=== PATIENT | male | born 1990 | race African-American/Black ===

== ENCOUNTER 2019-07-22 11:13 | Emergency (ER) | payer SELFPAY ==
[2019-07-22 11:19] VITALS: BP 144/80
--- NOTE | 2019-07-22 11:32 | ER Document Report ---
HPI - HPI Time Seen by Provider: 07/22/19 11:20 Pain Level: 2 Notes: 28-year-old male presents to the emergency room for evaluation of right plantar wart that is been several months. Denies any fevers or chills. States painful when he is ambulating due to having high arches. Has not seen his primary care provider for this issue. Pain is 3 out of 10, throbbing. No uqef-oas-yarwodq medications have been tried. Worse with time, nothing makes better. Denies any fevers chills, nausea vomiting diarrhea, weakness, disturbance in his gait. REVIEW OF SYSTEMS:reviewed vital signs by RN CONSTITUTIONAL : Denies fever, chills, or sweats. Denies recent illness. EENT: Denies eye, ear, throat, or mouth pain or symptoms. Denies nasal or sinus congestion or discharge. Denies throat, tongue, or mouth swelling or difficulty swallowing. CARDIOVASCULAR: Denies chest pain. Denies palpitations or racing or irregular heart beat. Denies ankle edema. RESPIRATORY: Denies cough, cold, or chest congestion. Denies shortness of breath, difficulty breathing, or wheezing. GASTROINTESTINAL: Denies abdominal pain or distention. Denies nausea, vomiting, or diarrhea. Denies blood in vomitus, stools, or per rectum. Denies black, tarry stools. Denies constipation. GENITOURINARY: Denies difficulty urinating, painful urination, burning, frequency, blood in urine, or discharge. MUSCULOSKELETAL: Denies back or neck pain or stiffness. Denies joint pain or swelling. SKIN: Reports right plantar wart. Denies rash, lesions or sores. HEMATOLOGIC : Denies easy bruising or bleeding. LYMPHATIC: Denies swollen, enlarged glands. NEUROLOGICAL: Denies confusion or altered mental status. Denies passing out or loss of consciousness. Denies dizziness or lightheadedness. Denies headache. Denies weakness or paralysis or loss of use of either side. Denies problems with gait or speech. Denies sensory loss, numbness, or tingling. Denies seizures. PSYCHIATRIC: Denies anxiety or stress. Denies depression, suicidal ideation, or homicidal ideation. ALL OTHER SYSTEMS REVIEWED AND NEGATIVE. Dictation was performed using [employer] voice recognition software PHYSICAL EXAMINATION: GENERAL: Well-appearing, well-nourished and in no acute distress. HEAD: Atraumatic, normocephalic. EYES: Pupils equal round and reactive to light, extraocular movements intact, sclera anicteric, conjunctiva are normal. ENT: Nares patent, oropharynx clear without exudates. Moist mucous membranes. NECK: Normal range of motion, supple without lymphadenopathy LUNGS: Breath sounds clear to auscultation bilaterally and equal. No wheezes rales or rhonchi. HEART: Regular rate and rhythm without murmurs ABDOMEN: Soft, nontender, nondistended abdomen. No guarding, no rebound. No masses appreciated. Musculoskeletal: Normal range of motion, no pitting or edema. No cyanosis. NEUROLOGICAL: Cranial nerves grossly intact. Normal speech, normal gait. Normal sensory, motor exams PSYCH: Normal mood, normal affect. SKIN: Warm, Dry, normal turgor, no rashes or lesions noted. right planter wart to MTP on dorsal aspect. no erythema, induration or warmth to touch. no open wounds. - REPRODUCTIVE Reproductive: DENIES: : Past Medical History - Social History Smoking Status: Never Smoker Chew tobacco use (# tins/day): No Frequency of alcohol use: None Drug Abuse: None Family History: Reviewed & Not Pertinent Patient has suicidal ideation: No Patient has homicidal ideation: No Past Surgical History: Reports: Hx Appendectomy - Immunizations Hx Diphtheria, Pertussis, Tetanus Vaccination: Yes Vertical Provider Document - INFECTION CONTROL TRAVEL OUTSIDE OF THE [place] IN LAST 30 DAYS: No Course - Re-evaluation Re-evalutation: 07/22/19 11:32 Afebrile vital stable no distress. Advised to use medicine as directed. Follow-up with ingredient specialist or primary care provider for wart removal. Take vitt-eie-beyzuny ibuprofen Tylenol as needed. Advised to use inserts to assist with pain with walking. After performing a Medical Screening Examination, I estimate there is LOW risk for OPEN FRACTURE, COMPARTMENT SYNDROME, TENDON RUPTURE, ACUTE NEUROVASCULAR INJURY, or RETAINED FOREIGN BODY, thus I consider the discharge disposition reasonable. Also, there is no evidence or peritonitis, sepsis, or toxicity. I have reevaluated this patient multiple times and no significant life threatening changes are noted. The patient and I have discussed the diagnosis and risks, and we agree with discharging home with close follow-up with the understanding that symptoms and presentations can change. We also discussed returning to the Emergency Department immediately if new or worsening symptoms occur. We have discussed the symptoms which are most concerning (e.g., changing or worsening pain, fever, numbness, weakness, cool or painful digits) that necessitate immediate return. - Vital Signs Vital signs: Temp Pulse Resp BP Pulse Ox 98.6 F 91 18 144/80 H 98 07/22/19 11:21 07/22/19 11:21 07/22/19 11:21 07/22/19 11:21 07/22/19 11:21 Discharge - Discharge Clinical Impression: Plantar wart, right foot Condition: Stable Disposition: HOME, SELF-CARE Instructions: Plantar Warts ([facility]), Warts ([facility]), [facility] Additional Instructions: Warts You have warts. They're caused by a virus. The warts can spread to other areas of your body, and can be passed to other people. Warts will usually go away, but this can take years. For most warts, the best choice is to apply an anti-wart compound regularly until every wart is gone. There are prescription and hrqd-tde-hjsptqh preparations, usually containing either podophyllin or salicylic acid. Follow the directions carefully, and apply the medicine only to the wart. Warts can be removed by freezing or cautery. Because warts usually go away without causing damage, this treatment is reserved for more severe or resistant warts. Call the doctor if you develop swelling, increasing pain, fever, red streaks, or discharge. Apply Compound W daily and then place duct tape over it, this will slowly help treat your plantar wart Return immediately for any new or worsening symptoms. Follow up with primary care provider, call tomorrow to make followup appointment. Forms: Return to Work Referrals: TORI MOORE MD [COMMUNITY BASED STAFF] - Follow up as needed
== END 2019-07-22 11:40 | disposition home or self-care (01) ==
LOC: ER 11:13
DX: B07.0 Plantar wart (principal)
CPT/HCPCS: 99283

== ENCOUNTER 2020-05-19 09:21 | Emergency (ER) | payer SELFPAY ==
--- NOTE | 2020-05-19 09:44 | ER Document Report ---
ED General - General Chief Complaint: Numbness of Face Stated Complaint: FACIAL NUMBNESS,LIP SWELLING Time Seen by Provider: 05/19/20 09:21 Mode of Arrival: Ambulatory Information source: Patient Notes: 29-year-old male patient presents emergency department concern for numbness and drooping to his face. Patient reports last night he came home from work and had a severe headache. He states that he tried to go to sleep. When he woke up this morning he went to brush his teeth and noticed that something did not feel right. When he looked in the mirror he noticed that he had some drooping to the left side of his mouth. He also reports altered sensation to the left side of his face. He denies any other complaints. He denies any past medical history but does report that he has had elevated blood pressure readings in the past. TRAVEL OUTSIDE OF THE [place] IN LAST 30 DAYS: No - Related Data Allergies/Adverse Reactions: No Known Allergies Allergy (Verified 05/02/16 11:41) Past Medical History - General Information source: Patient - Social History Smoking Status: Never Smoker Frequency of alcohol use: None Drug Abuse: None Family History: Reviewed & Not Pertinent - Medical History Medical History: Negative Past Surgical History: Reports: Hx Appendectomy - Immunizations Hx Diphtheria, Pertussis, Tetanus Vaccination: Yes Review of Systems - Review of Systems Constitutional: No symptoms reported EENT: No symptoms reported Cardiovascular: No symptoms reported Respiratory: No symptoms reported Gastrointestinal: No symptoms reported Genitourinary: No symptoms reported Male Genitourinary: No symptoms reported Musculoskeletal: No symptoms reported Skin: No symptoms reported Hematologic/Lymphatic: No symptoms reported Neurological/Psychological: Headaches, Other - Facial palsy/left-sided facial numbness Physical Exam - Vital signs Vitals: Temp Pulse Resp BP Pulse Ox 98.5 F 77 18 161/72 H 100 05/19/20 09:35 05/19/20 09:35 05/19/20 09:35 05/19/20 09:35 05/19/20 09:35 - Notes Notes: PHYSICAL EXAMINATION: GENERAL: Well-appearing, well-nourished and in no acute distress. HEAD: Atraumatic, normocephalic. EYES: Pupils equal round and reactive to light, extraocular movements intact, sclera anicteric, conjunctiva are normal. ENT: Nares patent, oropharynx clear without exudates. Moist mucous membranes. NECK: Normal range of motion, supple without lymphadenopathy LUNGS: Breath sounds clear to auscultation bilaterally and equal. No wheezes rales or rhonchi. HEART: Regular rate and rhythm without murmurs ABDOMEN: Soft, nontender, nondistended abdomen. No guarding, no rebound. No masses appreciated. Musculoskeletal: Normal range of motion, no pitting or edema. No cyanosis. NEUROLOGICAL: Slight facial drooping noted on the right side, this is particular ly noted at rest near the mouth. Patient able to close eyes bilaterally. He reports altered sensation to the left side of his face initially. Tongue protrudes midline. Extraocular motions intact. Pupils are 2 mm and equally reactive. Normal speech, normal gait. 5 out of 5 strength in both the distal and proximal upper and lower extremities bilaterally. Sensation is grossly intact throughout. Finger to nose testing normal. Pronator drift normal. PSYCH: Normal mood, normal affect. SKIN: Warm, Dry, normal turgor, no rashes or lesions noted. Course - Re-evaluation Re-evalutation: Patient's work-up today was reassuring. Dr. Multani came to the bedside and evaluated the patient with me. 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 Patient will be started on steroids. Patient encouraged to do facial exercises. ED return precautions discussed, patient verbalized understanding and agreement with same. - Vital Signs Vital signs: Temp Pulse Resp BP Pulse Ox 98.5 F 56 L 12 123/88 H 100 05/19/20 09:35 05/19/20 11:39 05/19/20 11:39 05/19/20 11:39 05/19/20 11:39 - Laboratory Result Diagrams: 05/19/20 10:08 05/19/20 10:08 Laboratory results interpreted by me: 05/19/20 05/19/20 10:01 10:08 POC Glucose 113 H Creatine Kinase 257 H - Diagnostic Test Radiology reviewed: Image reviewed, Reports reviewed - EKG Interpretation by Me EKG shows normal: Sinus rhythm - Rate 62, QTc 374, normal axis, normal intervals, no ST segment elevations or depressions to suggest ischemia. Discharge - Discharge Clinical Impression: Mitchell's palsy Condition: Stable Disposition: HOME, SELF-CARE Additional Instructions: [place]' Palsy You have been diagnosed as having Mitchell's Palsy -- a paralysis of certain muscles of the face. It's caused by a temporary paralysis of the nerve which controls the muscles. The cause is unknown, but it's thought to be caused by a virus in most cases. The physician's exam shows that this is NOT a stroke. Mitchell's Palsy usually gets better by itself. There is no cure. Sometimes cortisone-type medication is given to decrease nerve swelling. This problem is usually temporary, lasting about three weeks. During that time, you must protect the eye from injury (because the eyelid muscles often do not cover it). Ointment or a patch may be necessary. Be sure to follow up as instructed, and call the doctor at once if new symptoms arise. Report any eye pain, decreasing vision or double vision, or any numbness or weakness outside the face area. Please take medications as prescribed. Remember to do the facial exercises as Dr. Multani explained to you. Return to the emergency department with any new or worsening symptoms. Prescriptions: Prednisone 10 mg PO ASDIR PRN #21 tablet PRN Reason: Forms: Return to Work
--- NOTE | 2020-05-19 09:57 | RADIOLOGY REPORT (SQ) ---
EXAM DESCRIPTION: CHEST SINGLE VIEW IMAGES COMPLETED DATE/TIME: 05/19/2020 9:48 am REASON FOR STUDY: stroke alert COMPARISON: 08/10/2014 EXAM PARAMETERS: NUMBER OF VIEWS: One view. TECHNIQUE: Single frontal radiographic view of the chest acquired. RADIATION DOSE: NA LIMITATIONS: None. FINDINGS: LUNGS AND PLEURA: No opacities, masses or pneumothorax. No pleural effusion. MEDIASTINUM AND HILAR STRUCTURES: No masses. Contour normal. HEART AND VASCULAR STRUCTURES: Heart normal in size. Normal vasculature. BONES: No acute findings. HARDWARE: None in the chest. OTHER: No other significant finding. IMPRESSION: NO ACUTE RADIOGRAPHIC FINDING IN THE CHEST. TECHNICAL DOCUMENTATION: JOB ID: [id number] 2010 [employer]- All Rights Reserved Reading location - IP/workstation name: [email or web address]
--- NOTE | 2020-05-19 09:59 | RADIOLOGY REPORT (SQ) ---
EXAM DESCRIPTION: CT HEAD WITHOUT IMAGES COMPLETED DATE/TIME: 05/19/2020 9:47 am REASON FOR STUDY: stroke alert COMPARISON: 08/10/14. TECHNIQUE: Axial images acquired through the brain without intravenous contrast. Images reviewed wi th bone, brain and subdural windows. Additional sagittal and coronal reconstructions were generated. Images stored on PACS. All CT scanners at this facility use dose modulation, iterative reconstruction, and/or weight based d osing when appropriate to reduce radiation dose to as low as reasonably achievable (ALARA). [facility]: Dose Right [facility]: CareDose [facility]: Dose Right [facility]: Teradose 4D [facility]: [employer] [place] RADIATION DOSE: CT Rad equipment meets quality standard of care and radiation dose reduction techniq ues were employed. CTDIvol: 53.2 mGy. DLP: 1070 mGy-cm. mGy. LIMITATIONS: None. FINDINGS: VENTRICLES: Normal size and contour. CEREBRUM: No masses. No hemorrhage. No midline shift. No evidence for acute infarction. Normal gra y/white matter differentiation. No areas of low density in the white matter. CEREBELLUM: No masses. No hemorrhage. No alteration of density. No evidence for acute infarction. EXTRAAXIAL SPACES: No fluid collections. No masses. ORBITS AND GLOBE: No intra- or extraconal masses. Normal contour of globe without masses. CALVARIUM: No fracture. PARANASAL SINUSES: No fluid or mucosal thickening. SOFT TISSUES: No mass or hematoma. OTHER: No other significant finding. IMPRESSION: No evidence of intracranial hemorrhage or other acute intracranial process. EVIDENCE OF ACUTE STROKE: NO. COMMENT: Pertinent positive or negative findings of the imaging study reported as a CRITICAL EXAM t o Dr. Multani. at09:52 on 05/19/2020. Category of Critical Exam: Negative code stroke Quality ID # [id number]: Final reports with documentation of one or more dose reduction techniques (e.g., Au tomated exposure control, adjustment of the mA and/or kV according to patient size, use of iterative reconstruction technique) TECHNICAL DOCUMENTATION: JOB ID: [id number] 2010 [employer]- All Rights Reserved Reading location - IP/workstation name: [email or web address]
[2020-05-19 10:21] LABS: ABSOLUTE BASOPHILS # (AUTO) 0.1 10^3/uL (0.0-0.2); ABSOLUTE EOSINOPHILS # (AUTO) 0.1 10^3/uL (0.0-0.6); ABSOLUTE LYMPHOCYTES (AUTO) 2.5 10^3/uL (0.5-4.7); ABSOLUTE MONOCYTES (AUTO) 0.4 10^3/uL (0.1-1.4); ABSOLUTE NEUT (AUTO) 4.5 10^3/uL (1.7-8.2); BASOPHILS % (AUTO) 0.9 % (0-2); EOSINOPHILS % (AUTO) 1.1 % (0-6); HEMATOCRIT 41.5 % (37.9-51.0); HEMOGLOBIN 14.6 g/dL (13.5-17.0); LYMPHOCYTES % (AUTO) 33.4 % (13-45); MEAN CORPUSCULAR HEMOGLOBIN 32.8 pg (27.0-33.4); MEAN CORPUSCULAR HGB CONC 35.2 g/dL (32.0-36.0); MEAN CORPUSCULAR VOLUME 93 fl (80-97); PLATELET COUNT 227 10^3/uL (150-450); RED BLOOD COUNT 4.46 10^6/uL (4.35-5.55); SEGMENTED NEUTROPHILS % (AUTO) 59.6 % (42-78); TOTAL CELLS COUNTED % (AUTO) 100 %; WHITE BLOOD COUNT 7.5 10^3/uL (4.0-10.5)
[2020-05-19 10:24] LABS: INTERNATIONAL RATION (INR) 0.88
[2020-05-19 10:25] LABS: PARTIAL THROMBOPLASTIN TIME 33.4 SEC (23.5-35.8)
[2020-05-19 10:28] LABS: PROTHROMBIN TIME 12.2 SEC (11.4-15.4)
[2020-05-19 10:43] LABS: ALBUMIN 4.9 g/dL (3.5-5.0); ALKALINE PHOSPHATASE 86 U/L (38-126); ANION GAP 10 (5-19); ASPARTATE AMINO TRANSFERASE 31 U/L (17-59); BILIRUBIN,DIRECT 0.2 mg/dL (0.0-0.4); BILIRUBIN,TOTAL 0.8 mg/dL (0.2-1.3); BLOOD UREA NITROGEN 19 mg/dL (7-20); CALCIUM 9.7 mg/dL (8.4-10.2); CARBON DIOXIDE 25 mmol/L (22-30); CHLORIDE 106 mmol/L (98-107); CREATINE KINASE 257 U/L (55-170); GLUCOSE 99 mg/dL (75-110); POTASSIUM 4.3 mmol/L (3.6-5.0); TOTAL PROTEIN 7.7 g/dL (6.3-8.2)
[2020-05-19 10:55] LABS: CREATINE KINASE MB 1.34 ng/mL (<4.55); TROPONIN I 0.023 ng/mL
--- NOTE | 2020-05-19 11:34 | ER Document Report ---
Doctor's Note Notes: 05/19/20 11:32 Bedside consult on patient in room 21. Patient sitting comfortably not showing any signs of distress at the moment. Patient has noted asymmetry right facial palsy when he smiles and when he raises his eyebrow his right eyebrow does not raise. Patient has palsy of of right eyelid right eyebrow and a diminished sensation on the right side of his face. Patient also has an asymmetric smile. Gag reflex is intact no other acute neurological findings noted on neuro exam. Assessment Mitchell's palsy right sided Plan is to treat patient as an outpatient with high-dose steroids and follow-up with his primary care physician. Agree with the plan that Marsha Garcia has outlined.
[2020-05-19 11:40] VITALS: BP 123/88
--- NOTE | 2020-05-19 13:03 | EKG REPORT ---
SEVERITY:- BORDERLINE ECG - SINUS RHYTHM BORDERLINE T ABNORMALITIES, INFERIOR LEADS : Confirmed by: Abdi Nava MD 19-May-2020 13:02:02
== END 2020-05-19 11:39 | disposition home or self-care (01) ==
LOC: ER 09:21
DX: G51.0 Bell's palsy (principal); R51.9 Headache, unspecified
CPT/HCPCS: 36415; 70450; 71045; 80053; 82550; 82553; 82962; 84484; 85025; 85610; 85730; 93005; 93010; 99285

== ENCOUNTER 2020-05-23 09:52 | Emergency (ER) | payer SELFPAY ==
[2020-05-23 10:04] VITALS: BP 146/79
[2020-05-23] MEDS ORDERED: NORMAL SALINE 1000 ML 1,000 ML IV ONE (11:22)
[2020-05-23] MEDS ORDERED: ONDANSETRON HCL INJ/PF 4 MG/2 ML SDV IV ONE (11:22)
[2020-05-23] MEDS ORDERED: KETOROLAC TROMETHAMINE INJ/PF 30 MG/1 ML SDV IV ONE (11:22)
[2020-05-23] MEDS ORDERED: DIPHENHYDRAMINE HCL 50 MG/ML VIAL IV ONE (11:22)
--- NOTE | 2020-05-23 11:27 | ER Document Report ---
ED Medical Screen (RME) - General Chief Complaint: Headache Stated Complaint: HEADACHE Time Seen by Provider: 05/23/20 11:16 TRAVEL OUTSIDE OF THE [place] IN LAST 30 DAYS: No - HPI Notes: 05/23/20 11:23 29-year-old male returns the emergency room after being seen 5 days ago where he was told he had right-sided Mitchell's palsy, was started on high-dose steroids, did receive a CT scan. Patient states that what makes him return to the emergency room is that he still has a throbbing headache that is exactly the same as it was on Friday, headache is 3 out of 5 on the pain scale, is not tried any iitu-wvy-gigpwfs medications because he was not sure if he was allowed to take the prednisone. Patient denies having history of migraines or headaches. Patient reports that it is a lingering headache that does get worse with lights and noise. 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 Denies any chest pain shortness of breath, nausea vomiting or diarrhea. Denies any numbness or tingling to his face, states that that subsided a couple days ago. I have greeted and performed a rapid initial assessment of this patient. A comprehensive ED assessment and evaluation of the patient, analysis of test results and completion of the medical decision making process will be conducted by additional ED providers. PHYSICAL EXAMINATION: GENERAL: Well-appearing, well-nourished and in no acute distress. HEAD: Atraumatic, normocephalic. EYES: Pupils equal round extraocular movements intact, conjunctiva are normal. Unable to raise right eyebrow fully NECK: Normal range of motion CV: s1, s2 regular LUNGS: No respiratory distress Musculoskeletal: Normal range of motion NEUROLOGICAL: Normal speech, normal gait. Noted right facial palsy, tongue midline. Speech clear. 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 SKIN: Warm, Dry, normal turgor, no rashes or lesions noted. - Related Data Allergies/Adverse Reactions: No Known Allergies Allergy (Verified 05/23/20 11:16) Home Medications: prednisone Past Medical History - Social History Chew tobacco use (# tins/day): No Frequency of alcohol use: None Drug Abuse: None Past Surgical History: Reports: Hx Appendectomy - Immunizations Hx Diphtheria, Pertussis, Tetanus Vaccination: Yes Physical Exam - Vital signs Vitals: Temp Pulse Resp BP Pulse Ox 98.7 F 74 16 146/79 H 100 05/23/20 10:03 05/23/20 10:03 05/23/20 10:03 05/23/20 10:03 05/23/20 10:03 Course - Vital Signs Vital signs: Temp Pulse Resp BP Pulse Ox 98.7 F 74 16 146/79 H 100 05/23/20 10:03 05/23/20 10:03 05/23/20 10:03 05/23/20 10:03 05/23/20 10:03
--- NOTE | 2020-05-23 12:43 | ER Document Report ---
ED Headache - General Chief Complaint: Headache Stated Complaint: HEADACHE Time Seen by Provider: 05/23/20 11:16 Mode of Arrival: Ambulatory Notes: As per Ally Garcia's note and Dr. 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 It's caused by a temporary paralysis of the nerve which controls the muscles. The cause is unknown, but it's thought to be caused by a virus in most cases. The physician's exam shows that this is NOT a stroke. Mitchell's Palsy usually gets better by itself. There is no cure. Sometimes cortisone-type medication is given to decrease nerve swelling. This problem is usually temporary, lasting about three weeks. During that time, you must protect the eye from injury (because the eyelid muscles often do not cover it). Ointment or a patch may be necessary. Be sure to follow up as instructed, and call the doctor at once if new symptoms arise. Report any eye pain, decreasing vision or double vision, or any numbness or weakness outside the face area. Please take medications as prescribed. Remember to do the facial exercises as Dr. Multani explained to you. Return to the emergency department with any new or worsening symptoms. Prescriptions: Prednisone 10 mg PO ASDIR PRN #21 tablet PRN Reason: ED Medical Screen ([facility]) - General Chief Complaint: Headache Stated Complaint: HEADACHE Time Seen by Provider: 05/23/20 11:16 TRAVEL OUTSIDE OF THE [place] IN LAST 30 DAYS: No - HPI Notes: 05/23/20 11:23 29-year-old male returns the emergency room after being seen 5 days ago where he was told he had right-sided Mitchell's palsy, was started on high-dose steroids, did receive a CT scan. Patient states that what makes him return to the emergency room is that he still has a throbbing headache that is exactly the same as it was on Friday, headache is 3 out of 5 on the pain scale, is not tried any [id number] medications because he was not sure if he was allowed to take the prednisone. Patient denies having history of migraines or headaches. Patient reports that it is a lingering headache that does get worse with lights and noise. 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 Denies any chest pain shortness of breath, nausea vomiting or diarrhea. Denies any numbness or tingling to his face, states that that subsided a couple days ago. I have greeted and performed a rapid initial assessment of this patient. A comprehensive ED assessment and evaluation of the patient, analysis of test results and completion of the medical decision making process will be conducted by additional ED providers. PHYSICAL EXAMINATION: GENERAL: Well-appearing, well-nourished and in no acute distress. HEAD: Atraumatic, normocephalic. EYES: Pupils equal round extraocular movements intact, conjunctiva are normal. Unable to raise right eyebrow fully NECK: Normal range of motion CV: s1, s2 regular LUNGS: No respiratory distress Musculoskeletal: Normal range of motion NEUROLOGICAL: Normal speech, normal gait. Noted right facial palsy, tongue midline. Speech clear. Cuff Matcher +2 bilaterally equally. SKIN: Warm, Dry, normal turgor, no rashes or lesions noted. MY NOTES 29 year-old black male arrives with his who also has migraine headaches. 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 Patient was diagnosed 5 days ago with right-sided Mitchell's palsy and still cannot fully close his right eye. His tongue is midline and he can puff his cheeks with some weakness of his right facial muscles. He reports he has severe right temporal and right frontal headache pains. He has never had migraines in his life. He denies any tick bites or any herbal remedies or heavy metal exposure or trauma fever chills cough or cold. Patient reports she has a 5 out of 10 headache pain with no nausea no vomiting no sore throat no abdominal pain no dysuria no nuchal rigidity but positive photophobia. He denies any visual changes otherwise. He smokes one third of a pack of cigarettes daily and drinks alcohol occasionally a few times a week. He denies any cocaine or illegal mind altering drugs. TRAVEL OUTSIDE OF THE [place] IN LAST 30 DAYS: No - HPI Patient complains to provider of: Headache Onset: Other - x 5 days. Timing: Still present Quality of pain: Achy Severity: Moderate Pain Level: 3 - Related Data Allergies/Adverse Reactions: No Known Allergies Allergy (Verified 05/23/20 12:10) Home Medications: prednisone Past Medical History - General Information source: Patient, Relative - Social History Smoking Status: Current Every Day Smoker Cigarette use (# per day): Yes Chew tobacco use (# tins/day): No Smoking Education Provided: Yes Frequency of alcohol use: None Drug Abuse: None Lives with: Family Family History: Reviewed & Not Pertinent Patient has suicidal ideation: No Patient has homicidal ideation: No Past Surgical History: Reports: Hx Appendectomy - Immunizations Hx Diphtheria, Pertussis, Tetanus Vaccination: Yes Review of Systems - Review of Systems Constitutional: See HPI, Weakness, Recent illness EENT: No symptoms reported, See HPI, Blurred vision, Sinus pressure - frontally Cardiovascular: No symptoms reported Respiratory: No symptoms reported Gastrointestinal: No symptoms reported Genitourinary: No symptoms reported Male Genitourinary: No symptoms reported Musculoskeletal: No symptoms reported Skin: No symptoms reported Hematologic/Lymphatic: No symptoms reported Neurological/Psychological: See HPI, Headaches Physical Exam - Vital signs Vitals: Temp Pulse Resp BP Pulse Ox 98.7 F 74 16 146/79 H 100 05/23/20 10:03 05/23/20 10:03 05/23/20 10:03 05/23/20 10:03 05/23/20 10:03 Interpretation: Normal - General General appearance: Appears well, Alert - HEENT Head: Normocephalic, Atraumatic Eyes: Normal Conjunctiva: Normal Cornea: Normal Extraocular movements intact: Yes Pupils: PERRL Mouth/Lips: Normal, Other - With exception of right facial droop very mild and right eye unable to close completely. No tearing noted. Mucous membranes: Normal Pharynx: Normal Neck: Normal - Respiratory Respiratory status: No respiratory distress Chest status: Nontender Breath sounds: Normal Chest palpation: Normal - Cardiovascular Rhythm: Regular Heart sounds: Normal auscultation Murmur: No - Abdominal Inspection: Normal Distension: No distension Bowel sounds: Normal Tenderness: Nontender Organomegaly: No organomegaly - Rectal Prostate: Other - deferred - Genitourinary Scrotum: Other - deferred - Back Back: Normal, Nontender - Extremities General upper extremity: Normal inspection, Nontender, Normal color, Normal ROM, Normal temperature General lower extremity: Normal inspection, Nontender, Normal color, Normal ROM, Normal temperature, Normal weight bearing. No: Brian's sign - Neurological Neuro grossly intact: Yes Cognition: Normal Orientation: AAOx4 Mesick Coma Scale Eye Opening: Spontaneous Mesick Coma Scale Verbal: Oriented Rafa Coma Scale Motor: Obeys Commands Rafa Coma Scale Total: 15 Speech: Normal Motor strength normal: LUE, RUE, LLE, RLE Sensory: Normal - Psychological Associated symptoms: Normal affect, Normal mood - Skin Skin Temperature: Warm Skin Moisture: Dry Skin Color: Normal Course - Vital Signs Vital signs: Temp Pulse Resp BP Pulse Ox 98.7 F 74 16 146/79 H 100 05/23/20 10:03 05/23/20 10:03 05/23/20 10:03 05/23/20 10:03 05/23/20 10:03 - Diagnostic Test Radiology reviewed: Reports reviewed Critical Care Note - Critical Care Note Comments: I discussed normal finding for MRI with patient and his . Also advised him of medications for headache. Discharge - Discharge Clinical Impression: Mitchell's palsy, Headache around the eyes Condition: Stable Disposition: HOME, SELF-CARE Instructions: Mitchell's Palsy ([facility]) Additional Instructions: Follow-up with personal doctor this week if symptoms persist return to ER if symptoms worsen or persist take medicines as directed encourage fluids avoid working while with cephalgia off work as directed. Try to avoid bright lights and harsh sounds. Will treat with antibiotics and antiviral because of Mitchell's palsy Prescriptions: Cephalexin Monohydrate [Keflex 500 mg Capsule] 500 mg PO BID #14 capsule Cyproheptadine HCl [Periactin 4 Mg Tablet] 4 mg PO HSP PRN #15 tablet PRN Reason: Acyclovir [Zovirax 200 mg Capsule] 200 mg PO TID 7 Days #21 capsule Forms: Return to Work
[2020-05-23] MEDS ORDERED: FENTANYL CITRATE INJ/PF 100 MCG/2 ML AMPUL IV ONE (13:13)
--- NOTE | 2020-05-23 15:06 | RADIOLOGY REPORT (SQ) ---
EXAM DESCRIPTION: MRI HEAD WITHOUT IMAGES COMPLETED DATE/TIME: 05/23/2020 2:57 pm REASON FOR STUDY: headache COMPARISON: 05/23/2020 TECHNIQUE: Multiplanar imaging includes non-contrasted T1, T2, FLAIR, and diffusion with ADC map seq uences. Images stored on PACS. LIMITATIONS: None. FINDINGS: ANATOMY: No anomalies. Normal vascular flow voids. Pituitary fossa normal. CSF SPACES: Normal in size and contour. No hemorrhage. CEREBRUM: Sulci and gyri normal in size and contour. Normal white matter signal on FLAIR imaging. No evidence of hemorrhage, mass, or extraaxial fluid collection. POSTERIOR FOSSA: No signal alteration. No hemorrhage. No edema, masses or mass effect. Internal siobhan tory canals, cerebello-pontine angles, mastoids normal. DIFFUSION IMAGING: Negative for acute or sub-acute infarction. ORBITS: No masses. Globes normal. PARANASAL SINUSES: No fluid levels. Mucosa normal. OTHER: No other significant finding. IMPRESSION: NORMAL MRI OF THE BRAIN WITHOUT INTRAVENOUS GADOLINIUM CONTRAST. EVIDENCE OF ACUTE STROKE: NO. TECHNICAL DOCUMENTATION: JOB ID: [id number] [employer]- All Rights Reserved Reading location - IP/workstation name: [email or web address]
== END 2020-05-23 15:45 | disposition home or self-care (01) ==
LOC: ER 09:52
DX: R51.9 Headache, unspecified (principal); G51.0 Bell's palsy; F17.210 Nicotine dependence, cigarettes, uncomplicated
CPT/HCPCS: 99285; 96361; 96374; 96375; 70551; J1200; J3010; J1885; J2405; J7030